=== PATIENT | female | born 1970 | race Caucasian/White ===

== ENCOUNTER 2016-03-10 13:43 | Outpatient (CLI) | payer BC | END 2016-03-10 13:44 | disposition home or self-care (01) | DX: R31.9 Hematuria, unspecified (principal) ==

== ENCOUNTER 2016-10-26 08:09 | Outpatient (CLI) | payer BC ==
[2016-10-26] MEDS ORDERED: BUFFERED LIDOCAINE 10 ML SYRINGE IU ONE (11:00)
[2016-10-26 11:11] VITALS: BP 104/59
--- NOTE | 2016-10-26 12:38 | Ultrasound Report ---
ULTRASOUND-GUIDED CYST ASPIRATION RIGHT BREAST: 10/26/2016 CLINICAL INDICATION: Painful septated cyst 12 o'clock position right breast. FINDINGS: Informed consent was obtained. Using standard aseptic technique, 1% buffered lidocaine was injected into the right breast for local anesthesia. Under ultrasound guidance, a 20 gauge needle was advanced into the target lesion. Approximately 12 mL of cloudy brownish fluid was removed. The cyst was noted to completely resolve. The fluid was discarded. The wound was dressed and ice applied. The patient was observed for approximately 15 minutes, then was discharged from [facility] in stable condition following instructions on wound care. IMPRESSION: ULTRASOUND-GUIDED FINE-NEEDLE ASPIRATION OF PAINFUL RIGHT BREAST CYST. THE PATIENT CAN RETURN TO ROUTINE ANNUAL SCREENING UNLESS OTHERWISE CLINICALLY INDICATED. JOB #: [id number] EXT JOB #: [id number] [place]
== END 2016-10-26 08:10 | disposition home or self-care (01) ==
LOC: DI 08:09
PROVIDERS: ATTEND Physician Assistant Medical
DX: N60.02 Solitary cyst of left breast (principal)
CPT/HCPCS: 19000

== ENCOUNTER 2017-07-11 09:55 | Outpatient (CLI) | payer BC | END 2017-07-11 09:56 | LOC: LAB.WCP 09:55 | PROVIDERS: ATTEND Physician Assistant Medical | DX: N39.0 Urinary tract infection, site not specified (principal) | CPT/HCPCS: 87086 ==

== ENCOUNTER 2019-08-21 14:18 | Outpatient (CLI) | payer BC ==
[2019-08-21 18:18] LABS: BASOPHILS # (AUTO) 0.1 10^3/uL (0.0-0.1); BASOPHILS % (AUTO) 0.6 %; EOSINOPHILS # (AUTO) 0.2 10^3/uL (0.0-0.7); EOSINOPHILS % (AUTO) 2.8 %; HGB - HEMOGLOBIN 12.4 g/dL (12.0-16.0); LYMPHOCYTES # (AUTO) 2.2 10^3/uL (1.5-3.5); LYMPHOCYTES % (AUTO) 28.7 %; MEAN CORPUSCULAR HEMOGLOBIN 30.9 pg (27.0-31.0); MEAN CORPUSCULAR HGB CONC 33.8 g/dL (32.0-36.0); MEAN CORPUSCULAR VOLUME 91.5 fL (81.0-99.0); MEAN PLATELET VOLUME 9.7 fL (7.9-10.8); MONOCYTES # (AUTO) 0.5 10^3/uL (0.0-1.0); MONOCYTES % (AUTO) 6.7 %; NEUTROPHILS # (AUTO) 4.7 10^3/uL (1.5-6.6); NEUTROPHILS % (AUTO) 60.9 %; PLT - PLATELET COUNT 277 10^3/uL (130-450); RED BLOOD COUNT 4.01 10^6/uL (4.20-5.40); RED CELL DISTRIBUTION WIDTH 12.8 % (12.0-15.0); WHITE BLOOD COUNT 7.8 x10^3/uL (4.8-10.8)
[2019-08-21 18:25] LABS: CALCIUM 9.4 mg/dL (8.5-10.3); CREATININE 0.6 mg/dL (0.4-1.0)
== END 2019-08-21 23:59 | disposition home or self-care (01) ==
LOC: LAB.WCP 14:18
PROVIDERS: ATTEND Nurse Practitioner Family
DX: R10.9 Unspecified abdominal pain (principal)
CPT/HCPCS: 36415; 80048; 85025

== ENCOUNTER 2020-03-18 08:00 | Outpatient (CLI) | payer BC ==
[2020-03-18 14:09] LABS: BASOPHILS % (AUTO) 0.6 %; EOSINOPHILS # (AUTO) 0.2 10^3/uL (0.0-0.7); EOSINOPHILS % (AUTO) 3.4 %; HGB - HEMOGLOBIN 13.5 g/dL (12.0-16.0); LYMPHOCYTES # (AUTO) 2.4 10^3/uL (1.5-3.5); LYMPHOCYTES % (AUTO) 38.4 %; MEAN CORPUSCULAR HEMOGLOBIN 30.8 pg (27.0-31.0); MEAN CORPUSCULAR HGB CONC 33.4 g/dL (32.0-36.0); MEAN CORPUSCULAR VOLUME 92.2 fL (81.0-99.0); MEAN PLATELET VOLUME 9.4 fL (7.9-10.8); MONOCYTES # (AUTO) 0.4 10^3/uL (0.0-1.0); MONOCYTES % (AUTO) 5.9 %; NEUTROPHILS # (AUTO) 3.2 10^3/uL (1.5-6.6); NEUTROPHILS % (AUTO) 51.4 %; PLT - PLATELET COUNT 253 10^3/uL (130-450); RED BLOOD COUNT 4.38 10^6/uL (4.20-5.40); WHITE BLOOD COUNT 6.2 x10^3/uL (4.8-10.8)
[2020-03-18 14:25] LABS: ALBUMIN/GLOBULIN RATIO 1.8 (1.0-2.2); ALKALINE PHOSPHATASE 71 IU/L (42-121); ALT ALANINE AMINOTRANSFERASE 21 IU/L (10-60); AST ASPARTATE AMINOTRANSFERASE 22 IU/L (10-42); BILIRUBIN,TOTAL 0.8 mg/dL (0.2-1.0); BUN - BLOOD UREA NITROGEN 16 mg/dL (6-20); CALCIUM 9.5 mg/dL (8.5-10.3); CARBON DIOXIDE - CO2 25 mmol/L (21-32); CHLORIDE 99 mmol/L (101-111); CHOL/HDL RATIO 2.9 (<4.4); CHOLESTEROL 236 mg/dL; CREATININE 0.8 mg/dL (0.4-1.0); GLUCOSE 93 mg/dL (70-100); HDL CHOLESTEROL 81 mg/dL; LDL CHOLESTEROL,CALCULATED 138 mg/dL; LDL/HDL RATIO 1.7 (<4.4); TOTAL PROTEIN 7.8 g/dL (6.7-8.2); VLDL CHOLESTEROL 17 mg/dL
== END 2020-03-18 08:01 | disposition home or self-care (01) ==
LOC: LAB 08:00
PROVIDERS: ATTEND Physician Assistant Medical
DX: Z00.00 Encounter for general adult medical examination without abnormal findings (principal)
CPT/HCPCS: 36415; 80053; 80061; 83721; 84443; 85025

== ENCOUNTER 2020-05-29 09:38 | Outpatient (CLI) | payer BC | END 2020-05-29 23:59 | disposition home or self-care (01) | LOC: LAB.R 09:38 | PROVIDERS: ATTEND Family Medicine | DX: J01.90 Acute sinusitis, unspecified (principal); J06.9 Acute upper respiratory infection, unspecified; Z20.822 Contact with and (suspected) exposure to COVID-19 ==

== ENCOUNTER 2021-01-29 12:53 | Outpatient (CLI) | payer BC ==
[2021-01-29 17:56] LABS: BASOPHILS % (AUTO) 0.6 %; EOSINOPHILS # (AUTO) 0.3 10^3/uL (0.0-0.7); EOSINOPHILS % (AUTO) 3.9 %; HCT - HEMATOCRIT 42.1 % (37.0-47.0); HGB - HEMOGLOBIN 13.8 g/dL (12.0-16.0); LYMPHOCYTES # (AUTO) 2.5 10^3/uL (1.5-3.5); LYMPHOCYTES % (AUTO) 37.3 %; MEAN CORPUSCULAR HEMOGLOBIN 30.3 pg (27.0-31.0); MEAN CORPUSCULAR HGB CONC 32.8 g/dL (32.0-36.0); MEAN CORPUSCULAR VOLUME 92.5 fL (81.0-99.0); MEAN PLATELET VOLUME 9.8 fL (7.9-10.8); MONOCYTES # (AUTO) 0.5 10^3/uL (0.0-1.0); MONOCYTES % (AUTO) 7.6 %; NEUTROPHILS # (AUTO) 3.3 10^3/uL (1.5-6.6); NEUTROPHILS % (AUTO) 50.3 %; PLT - PLATELET COUNT 280 10^3/uL (130-450); RED BLOOD COUNT 4.55 10^6/uL (4.20-5.40); RED CELL DISTRIBUTION WIDTH 12.5 % (12.0-15.0); WHITE BLOOD COUNT 6.6 x10^3/uL (4.8-10.8)
[2021-01-29 18:17] LABS: ALBUMIN 4.8 g/dL (3.2-5.5); ALBUMIN/GLOBULIN RATIO 1.5 (1.0-2.2); ALKALINE PHOSPHATASE 82 IU/L (42-121); ALT ALANINE AMINOTRANSFERASE 19 IU/L (10-60); AST ASPARTATE AMINOTRANSFERASE 23 IU/L (10-42); BILIRUBIN,TOTAL 0.7 mg/dL (0.2-1.0); BUN - BLOOD UREA NITROGEN 15 mg/dL (6-20); CALCIUM 9.7 mg/dL (8.5-10.3); CARBON DIOXIDE - CO2 27 mmol/L (21-32); CHLORIDE 100 mmol/L (101-111); CHOL/HDL RATIO 2.7 (<4.4); CHOLESTEROL 209 mg/dL; CREATININE 0.8 mg/dL (0.4-1.0); GFR - MDRD 76 (>89); GLUCOSE 91 mg/dL (70-100); HDL CHOLESTEROL 78 mg/dL; LDL CHOLESTEROL,CALCULATED 115 mg/dL; LDL/HDL RATIO 1.5 (<4.4); POTASSIUM 4.4 mmol/L (3.5-5.0); SODIUM 137 mmol/L (135-145); TRIGLYCERIDES 81 mg/dL; VLDL CHOLESTEROL 16 mg/dL
[2021-01-29 18:23] LABS: THYROID STIMULATING HORMONE 1.03 uIU/mL (0.34-5.60)
== END 2021-01-29 23:59 | disposition home or self-care (01) ==
LOC: LAB.WCP 12:53
PROVIDERS: ATTEND Physician Assistant Medical
DX: Z00.00 Encounter for general adult medical examination without abnormal findings (principal)
CPT/HCPCS: 36415; 80053; 80061; 83721; 84443; 85025

== ENCOUNTER 2021-03-10 08:00 | Outpatient (CLI) | payer BC | END 2021-03-10 23:59 | disposition home or self-care (01) | LOC: LAB.N 08:00 | PROVIDERS: ATTEND Physician Assistant Medical | DX: R05.3 Chronic cough (principal); Z20.822 Contact with and (suspected) exposure to COVID-19 ==

== ENCOUNTER 2021-03-23 08:24 | Day surgery (SDC) | payer BC ==
[2021-03-23] MEDS ORDERED: LACTATED RINGERS 1,000 ML IV ONE (08:27)
--- NOTE | 2021-03-23 10:25 | ANESTHESIA ---
Pre-Anesthesia VS, & Labs - Diagnosis Screening exam - Procedure colonoscopy Vital Signs: Temp Pulse Resp BP Pulse Ox 37 C 67 18 121/84 H 98 03/23/21 08:45 03/23/21 08:45 03/23/21 08:45 03/23/21 08:45 03/23/21 08:45 Height: 5 ft 4 in Weight (kg): 78.2 kg Body Mass Index: 29.5 BMI Classification: Overweight - NPO >8 hours - Is Patient ?: No Home Medications and Allergies Home Medications: Ambulatory Orders Cholecalciferol [Vitamin D3] 5,000 unit PO DAILY 03/23/21 Fluticasone [Flonase] 1 sprays BRYAN DAILY 03/23/21 Citalopram [CeleXA] 10 mg PO DAILY 03/05/21 Progesterone,Micronized [Prometrium] 200 mg PO DAILY 03/05/21 Cholecalciferol [Vitamin D3] 5,000 unit PO DAILY 03/23/21 Fluticasone [Flonase] 1 sprays BRYAN DAILY 03/23/21 Allergies/Adverse Reactions: Allergies Allergy/AdvReac Type Severity Reaction Status Date / Time escitalopram [From Lexapro] Allergy Unknown Verified 03/23/21 08:26 neomycin Allergy Unknown Verified 03/23/21 08:26 bacitracin AdvReac Unknown Verified 03/23/21 08:26 Anes History & Medical History - Anesthetic History Anesthesia Complications: reports: No previous complications Family history of Anesthesia Complications: Denies Family history of Malignant Hyperthermia: Denies - Medical History Cardiovascular: reports: None Pulmonary: reports: None, Other (snores) Gastrointestinal: reports: None Urinary: reports: None Neuro: reports: None Musculoskeletal: reports: None Endocrine/Autoimmune: reports: None Blood Disorders: reports: None Skin: reports: None Smoking Status: Former smoker (Quit 3 years ago) Psychosocial: reports: Depression, Alcohol (7-8 drinks per week) History of Cancer?: No - Surgical History Eyes Ears Nose Throat (EENT): reports: Myringotomy (tubes) Exam General: Alert, Oriented x3, Cooperative, No acute distress Dental: WNL Mouth Openin Fingerbreadth Neck Mobility: Normal Mallampati classification: III Thyromental Distance: 4-6 cm Mental/Cognitive Status: Alert/Oriented X3, Normal for patient Plan Anesthesia Type: General, IV Regional Consent for Procedure(s) Verified and Reviewed: Yes Code Status: Attempt Resuscitation ASA classification: 2-Mild systemic disease Is this case an emergency?: No
[2021-03-23] MEDS ORDERED: LACTATED RINGERS 300 ML IV ONE (12:49)
[2021-03-23 13:11] VITALS: BP 124/64
--- NOTE | 2021-03-23 14:46 | ANESTHESIA POST OP EVALUATION ---
Anesthesia Post Eval - Post Anesthesia Eval Vitals: Last Vital Signs Temp 36.8 C 03/23/21 13:10 Pulse 62 03/23/21 13:10 Resp 14 03/23/21 13:10 BP 124/64 03/23/21 13:10 Pulse Ox 100 03/23/21 13:10 CV Function Including HR & BP: Stable Pain Control: Satisfactory Nausea & Vomiting: Negative Mental Status: Baseline Respiratory Status: Airway Patent Hydration Status: Satisfactory Anesthesia Complications: None
== END 2021-03-23 08:25 | disposition home or self-care (01) ==
LOC: SDS 08:24
PROVIDERS: ATTEND Surgery
PROC: 0DBN8ZZ Excision of Sigmoid Colon, Via Natural or Artificial Opening Endoscopic (ICD-10-PCS; principal; 2021-03-23 09:30)
DX: Z12.11 Encounter for screening for malignant neoplasm of colon (principal); K63.5 Polyp of colon; K64.8 Other hemorrhoids; F41.9 Anxiety disorder, unspecified; Z87.891 Personal history of nicotine dependence; F32.A Depression, unspecified
CPT/HCPCS: 45380; J7120